=== PATIENT | male | born 1980 | race African-American/Black ===

== ENCOUNTER 2022-10-20 22:55 | Emergency (ER) | payer OTHER ==
[2022-10-20 23:04] VITALS: BP 148/83
[2022-10-20 23:16] VITALS: BP 145/96
[2022-10-20 23:25] LABS: BASO% 0.4 % (0-3); EOS% 6.4 % (0-8); HEMOGLOBIN 14.1 g/dl (14.0-18.0); IMMATURE GRANULOCYTES 0.4 % (0.0-5.0); LYMPH% 37.8 % (15-41); MEAN CELL VOLUME 87.9 fL CALC (80.0-100.0); MEAN CORPUSCULAR HGB 27.5 pG CALC (26.0-32.0); MEAN CORPUSCULAR HGB CONC 31.3 g/dL CAL (32.0-36.0); MONO% 8.5 % (2-13); NEUT# 3.28 thou/uL (1.82-7.42); NEUT% 46.5 % (42-76); RED BLOOD COUNT 5.12 mill/uL (4.70-6.10); RED CELL DISTRI WIDTH 12.5 % (11.5-15.5)
[2022-10-20 23:31] VITALS: BP 157/90
[2022-10-20 23:34] LABS: CREATININE 1.8 mg/dL (0.7-1.3); MAGNESIUM 2.4 mg/dL (1.6-2.3); POTASSIUM 4.4 mmol/l (3.5-5.1)
[2022-10-20 23:46] VITALS: BP 166/96
[2022-10-21] MEDS ORDERED: VOLTAREN75 MG PO (01:44)
[2022-10-21] MEDS ORDERED: AMLODIPINE BESYL5 MG PO (01:44)
[2022-10-21] MEDS ORDERED: ASPIRIN 81 LOW81 MG PO (01:44)
[2022-10-21 02:06] VITALS: BP 166/96
== END 2022-10-21 02:10 | DRG 74 ==
LOC: ED 22:55
PROVIDERS: Family Medicine
DX: M54.12 Radiculopathy, cervical region (principal); I10 Essential (primary) hypertension; Z86.73 Personal history of transient ischemic attack (TIA), and cerebral infarction without residual deficits